=== PATIENT | female | born 1935 | race Caucasian/White ===

== ENCOUNTER → 2018-07-18 | Outpatient (CLI) | payer OTHER ==
[~2018-07-18] MED LIST: ANAPROX DS550 MG PO; ASPIRIN LOW DOS81 MG PO; ATIVAN0.5 MG PO; CALCIUM500 M1 PO; CELEBREX100 MG PO; CIPROFLOXACIN500 MG PO; CORBAN MAGNESI400 MG PO; FAMILY PHARMAC325 MG PO; KEFLEX500 M1 PO; LANSOPRAZOLE30 M1 PO; LEVOXYL88 MCG PO; LOSARTAN POTASS50 M1 PO; LYRICA75 M1 PO; METOCLOPRAMIDE5 MG PO; Metformin Hydr500 MG; PRESERVISION A1 EAC1 PO; PRILOSEC; PRILOSEC20 MG PO; REQUIP0.5 MG PO; SYNTHROID,LEV175 MCG PO; Synthroid,Lev150 MCG PO; Synthroid,Levo75 MCG PO; TRAMADOL HCL50 MG PO; VITAMIN D; ZOFRAN4 MG PO
[2018-07-18 11:29] LABS: IRON 52 ug/dL (50-170); TOTAL IRON BINDING CAPACITY 332 ug/dl (250-450)
== END | disposition home or self-care (01) ==
LOC: LAB 10:48
PROVIDERS: Internal Medicine
DX: C16.9 Malignant neoplasm of stomach, unspecified (principal); I10 Essential (primary) hypertension; E11.9 Type 2 diabetes mellitus without complications; E03.9 Hypothyroidism, unspecified; R42 Dizziness and giddiness; J22 Unspecified acute lower respiratory infection; D64.9 Anemia, unspecified

== ENCOUNTER 2018-09-19 22:14 | Inpatient (IN) | payer OTHER ==
--- NOTE | ~2018-09-19 | EKG ---
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
--- NOTE | ~2018-09-19 | EKG ---
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
--- NOTE | ~2018-09-19 | EKG ---
[place], [place] ELECTROCARDIOGRAM REPORT NAME: TERRI SHEN UNIT #: [id number] ROOM: 504 DOCTOR: SARINA DRAFT REPORT BIRTHDATE: [birth year] [facility] Test Date: 2018-09-20 Test Time: 01:19:58 Pat Name: TERRI SHEN Department: Room: 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
--- NOTE | ~2018-09-19 | CON ---
[place], [place] REPORT OF CONSULTATION NAME: TERRI SHEN [facility] #: [id number] UNIT #: [id number] ROOM: 504 DOCTOR: BEVERLEY SPEARS MD BIRTHDATE: [birth year] DOS: 09/20/2018 CARDIOLOGY CONSULTATION REASON FOR CONSULTATION: Chest pain. HISTORY OF PRESENT ILLNESS: The patient is an 83-year-old woman who has no previously documented history of coronary artery disease. She does have a history of type 2 diabetes mellitus and hypertension along with surgically induced hypothyroidism. She states that in 06/2018 she fell and since then has had considerable back pain. Some of the pain does radiate into her chest and causes a pressure sensation in her epigastrium and substernal region. She was hospitalized in 06/2018, at which time a myocardial infarction was ruled out. No further cardiac testing was done at that time. She has continued to have persistent chest pains and had a prolonged episode of severe chest pain prompting the current admission. During her hospitalization in June, she was noted to have a mild elevation in troponin. The pattern was stable and did not indicate an acute coronary syndrome. On the current admission, she has a similar pattern without much change from 06/2018. PAST MEDICAL HISTORY: Includes: 1. Type 2 diabetes mellitus. 2. Diabetic neuropathy and retinopathy. 3. Essential hypertension. 4. Status post thyroidectomy with subsequent hypothyroidism. 5. History of cancer of the ampulla of Vater. The patient underwent a Whipple procedure around 20 years ago and has not had any recurrence of her tumor. 6. Status post hysterectomy, cholecystectomy, thyroidectomy and knee replacement. 7. History of iron deficiency anemia. 8. Recurrent and persistent gastroesophageal reflux disease. MEDICATIONS: Prior to admission, acetaminophen p.r.n., amitriptyline 25 mg daily, aspirin 81 mg daily, calcium carbonate 500 mg b.i.d., Celebrex 200 mg daily, Parafon Forte 500 mg b.i.d., cholecalciferol 1000 units daily, iron sulfate 325 mg b.i.d., gabapentin 100 mg t.i.d., levothyroxine 400 mcg daily, losartan 50 mg daily, meclizine 25 mg b.i.d., metformin 500 mg b.i.d., omeprazole 20 mg daily, PreserVision vitamins b.i.d. ALLERGIES: THE PATIENT LISTS AN ALLERGY TO CODEINE. FAMILY HISTORY: The patient's mother of complications of diabetes and a stroke. Her father of coronary artery disease complications. Her sister has a history of breast cancer. REVIEW OF SYSTEMS: The patient denies diplopia or loss of vision. She denies focal weakness. She denies lightheadedness or syncope. She denies fevers, chills, sweats or recent weight change. She denies vomiting, but she has had [place], [place] REPORT OF CONSULTATION NAME: TERRI SHEN UNIT #: [id number] ROOM: [facility] DOCTOR: BEVERLEY SPEARS MD BIRTHDATE: [birth year] some nausea. She has had some shortness of breath associated with the chest pain. She has had the chest pains documented above. She denies cough, hemoptysis or hematemesis. She denies any blood in her stools or urine. She denies bleeding from any other site. She denies any skin rashes. She denies change in her bowel or bladder habits. She denies any peripheral edema. The remainder of the review of systems is negative except as noted above. SOCIAL HISTORY: The patient has never smoked and does not consume alcohol. There is no history of illicit drug use. PHYSICAL EXAMINATION: GENERAL: The patient is an overweight white female, awake, alert and oriented. VITAL SIGNS: Pulse is 77 and regular, blood pressure is 145/64. She is afebrile. She weighs 75.5 kg and has a body mass index of 31.5. HEENT: Normocephalic, atraumatic. Extraocular muscles are intact. Sclerae are clear. Pupils equal, round and reactive to light. The oral mucosa is moist. Tongue is midline. NECK: Supple. She has no jugular distention. Carotids are full. There are no bruits. She has no neck or supraclavicular masses, no thyromegaly. LUNGS: Respirations are unlabored. Her chest is clear to auscultation and percussion. She has no presacral edema. She has some mild tenderness of her lower sternum, but this does not reproduce her presenting chest pains. CARDIOVASCULAR: Heart has a regular rhythm with a soft S4 gallop, but no S3 or murmur. The PMI is not displaced. There is no precordial heave, lift or thrill. ABDOMEN: Soft and normally active without masses, organomegaly or bruits. EXTREMITIES: Showed no clubbing, cyanosis or edema. Pedal pulses are palpable in the feet bilaterally. LABORATORY DATA: I reviewed her electrocardiogram, which showed sinus rhythm. She has early precordial R-wave progression, but the tracing is otherwise normal and shows no acute ST or T-wave changes. Hemoglobin is 9.7, white count 12,600, platelet count 400,000. INR is 1.0. Sodium 147, potassium 4.7, chloride 119, CO2 22, BUN 15, creatinine 1.05. Estimated GFR is 50. AST is elevated at 58, ALT is normal, alkaline phosphatase is elevated at 170. Serial troponin levels once again showed minimal elevation at a maximum of 0.086. TSH is slightly low at 0.315. Total bilirubin is normal at 0.3. IMPRESSION: 1. Epigastric pain, etiology to be determined. The patient does have a mild elevation in troponin, but does not have a pattern that suggested acute coronary syndrome and her EKG shows no acute changes. 2. History of Whipple procedure for carcinoma of the ampulla. 3. Type 2 diabetes mellitus. 4. Gastroesophageal reflux disease. 5. Elevation in transaminase levels. 6. Persistent elevation in troponin of a low level. PLAN: We will proceed with a pharmacologic stress test. At this point, it appears that her pains are not cardiac in origin, but we will be able to [place], [place] REPORT OF CONSULTATION [id number] UNIT #: [id number] ROOM: [facility] DOCTOR: BEVERLEY SPEARS MD BIRTHDATE: [birth year] determine if she has had a previous infarction or significant ongoing ischemia. If that looks normal, then no other cardiac workup would be indicated, but further GI evaluation may be. We will leave that to her primary physician's discretion. We will proceed with her pharmacologic stress test and make further recommendations at that point. I thank the hospitalist physicians for asking our advice regarding her care. BEVERLEY SPEARS MD CM:CONSTR:REPORT OF CONSULTATION 1257 09/20/18 1326 interface
[~2018-09-19 22:14] MED LIST changes: +OMEPRAZOLE D/R20 MG PO; -PRILOSEC20 MG PO
[2018-09-19 22:17] VITALS: BP 162/90
[2018-09-19 22:51] LABS: BASO # 0.1 10*3/uL (0.0-0.1); BASO % 0.9 % (0.0-1.0); EOS # 0.2 10*3/uL (0.0-0.4); EOS % 1.1 % (1.0-4.0); HEMATOCRIT 35.4 % (37.0-47.0); HEMOGLOBIN 10.8 g/dl (12.0-16.0); LYMPH # 1.9 10*3/uL (1.3-4.4); LYMPH % 14.6 % (27.0-41.0); MEAN CELL VOLUME 98.6 fl (81.0-99.0); MEAN CORPUSCULAR HGB 30.1 pg (27.0-31.0); MEAN CORPUSCULAR HGB CONC 30.5 g/dl (33.0-37.0); MEAN PLATELET VOLUME 11.1 fl (9.6-12.3); MONO # 1.1 10*3/uL (0.1-1.0); MONO % 8.1 % (3.0-9.0); NEUT # 9.9 10*3/uL (2.3-7.9); NEUT % 74.5 % (47.0-73.0); NUCLEATED RED BLOOD CELL 0.2 % (0.0-0.0); PLATELET COUNT AUTOMATED 401 10*3/uL (130-400); RED BLOOD COUNT 3.59 10*6/uL (4.10-5.10); RED CELL DISTRI WIDTH 19.6 % (0-14.5); WHITE BLOOD COUNT 13.3 10*3/uL (4.8-10.8)
[2018-09-19 23:02] LABS: ACT PARTIAL THROMBO TIME 24.7 SECONDS (20.8-31.5)
[2018-09-19 23:08] LABS: ALBUMIN 2.8 gm/dl (3.1-4.5); CREATININE 1.26 mg/dL (0.55-1.02); POTASSIUM 5.6 mmol/L (3.5-5.1); TOTAL PROTEIN 6.9 gm/dL (6.4-8.2)
[2018-09-19 23:10] LABS: TROPONIN I 0.079 ng/ml (<0.045)
[2018-09-19 23:11] VITALS: BP 144/82
[2018-09-20 00:16] VITALS: BP 147/71
--- NOTE | 2018-09-20 00:32 | NUR ---
FAMILY AT BEDSIDE PT DENIES ANY CHEST PAIN AT THIS TIME STATES PAIN IS IN SHOULDERS AT 8/10 PT GIVEN 0.5MG DILAUDID SLOW IV PUSH
--- NOTE | 2018-09-20 00:47 | NUR ---
Time: 46 A 83 year old FEMALE admitted to 5E under services of CULLEN AVILEZ DO, Pt. arrived via stretcher from ER. Chief complaint: CHEST PAIN. ISAC GRAHAM
[2018-09-20] MEDS ORDERED: MOTION SICKNESS25 MG PO (00:54)
[2018-09-20] MEDS ORDERED: AMITRIPTYLINE25 MG PO (00:55)
[2018-09-20] MEDS ORDERED: GLUCOPHAGE500 M1 PO (00:56)
[2018-09-20] MEDS ORDERED: IRON325 M3 PO (00:57)
[2018-09-20] MEDS ORDERED: VITAMIN D31000 UNI1 PO (00:58)
[2018-09-20] MEDS ORDERED: SYNTHROID300 MCG PO (00:59)
[2018-09-20 01:00] VITALS: BP 150/68
[2018-09-20] MEDS ORDERED: TYLENOL EXTRA500 MG PO (01:00)
[2018-09-20] MEDS ORDERED: CHLORZOXAZONE500 M2 PO (01:01)
[2018-09-20] MEDS ORDERED: CELEBREX100 MG PO (01:02)
--- NOTE | 2018-09-20 01:06 | NUR ---
MED REC UP TO DATE PER LIST PROVIDED BY FAMILY. NOTIFIED.
[2018-09-20] MEDS ORDERED: GABAPENTIN100 M2 PO (01:09)
--- NOTE | 2018-09-20 01:37 | NUR ---
DR SPEARS'S ANSWERING SERVICE AWARE OF CONSULT
--- NOTE | 2018-09-20 01:39 | NUR ---
DR RUSSELL AWARE OF [facility] RECOMMENDING DECREASING LOVENOX FROM 40 TO 30 DAILY
[2018-09-20 04:26] LABS: BASO # 0.1 10*3/uL (0.0-0.1); BASO % 0.9 % (0.0-1.0); EOS % 0.2 % (1.0-4.0); HEMATOCRIT 32.7 % (37.0-47.0); HEMOGLOBIN 9.7 g/dl (12.0-16.0); MEAN CELL VOLUME 98.8 fl (81.0-99.0); MEAN CORPUSCULAR HGB 29.3 pg (27.0-31.0); MEAN CORPUSCULAR HGB CONC 29.7 g/dl (33.0-37.0); MEAN PLATELET VOLUME 11.2 fl (9.6-12.3); MONO # 0.9 10*3/uL (0.1-1.0); MONO % 7.2 % (3.0-9.0); NEUT # 9.5 10*3/uL (2.3-7.9); NEUT % 75.1 % (47.0-73.0); NUCLEATED RED BLOOD CELL 0.2 % (0.0-0.0); PLATELET COUNT AUTOMATED 400 10*3/uL (130-400); RED BLOOD COUNT 3.31 10*6/uL (4.10-5.10); RED CELL DISTRI WIDTH 19.9 % (0-14.5); WHITE BLOOD COUNT 12.6 10*3/uL (4.8-10.8)
[2018-09-20 04:41] LABS: ACT PARTIAL THROMBO TIME 25.8 SECONDS (20.8-31.5)
[2018-09-20 04:42] LABS: ALBUMIN 2.4 gm/dl (3.1-4.5); ALKALINE PHOSPHATASE 170 U/L (45-117); BUN 15 mg/dl (7-24); CHLORIDE 119 mmol/L (98-107); CREATININE 1.05 mg/dL (0.55-1.02); POTASSIUM 4.7 mmol/L (3.5-5.1); SGOT/AST 58 IU/L (3-35); SGPT/ALT 47 U/L (12-78); SODIUM 147 mmol/L (136-145); TOTAL PROTEIN 6.1 gm/dL (6.4-8.2)
[2018-09-20 04:44] LABS: FREE T4 1.38 ng/dl (0.76-1.46)
--- NOTE | 2018-09-20 04:48 | NUR ---
DR RUSSELL AWARE OF CRITICAL TROPONIN
[2018-09-20 04:50] LABS: THYROID STIM HORMONE (HS) 0.315 uIU/ml (0.358-4.75)
--- NOTE | 2018-09-20 06:12 | NUR ---
PATIENT RESTING IN BED WITH NO S/S OF DISTRESS. NO NEEDS MADE. RESPIRATIONS EASY AND REGULAR. DENIES CHEST PAIN OR PRESSURE. BED IN LOWEST POSITION, CALL LIGHT IN REACH
[2018-09-20 07:30] VITALS: BP 136/70
--- NOTE | 2018-09-20 11:47 | NUR ---
Shift chart check completed.
[2018-09-20 12:00] VITALS: BP 145/64
--- NOTE | 2018-09-20 12:30 | NUR ---
INFORMED CONSENT OBTAINED FOR LEXISCAN NUCLEAR STRESS TEST WITH DR. SPEARS. RESTING EKG NSR WITH A RESTING HR OF 79 WITH BP OF 118/74. LUNGS CLEAR WITH SPO2 OF 94% ON ROOM AIR. PT COMPLETED A 1:00 LEXISCAN PROTOCOL RECEIVING LEXISCAN 0.4 MG IV OVER 10 SECONDS. HAD NO CHEST PAIN OR ANY EKG CHANGES. DID C/O FEELING OF SHORTNESS OF BREATH, WARM AND HEADACHE THAT WAS RELIEVED IN RECOVERY. HAD A PEAK HR OF 93 WITH BP OF 134/68. LAST RECOVERY HR OF 88 WITH BP OF 122/72. AWAITING SCANNING IN STABLE CONDITION.
--- NOTE | 2018-09-20 13:53 | NUR ---
Spoke with Dr. Bowling about resuming patients diet. No new orders at this time.
--- NOTE | 2018-09-20 15:31 | NUR ---
Occupational Therapy evaluation offered this date but patient was seated edge of bed with family present, eating lunch. OTR will recheck at a later date. Geetha Brooke OTR/l
[2018-09-20 16:00] VITALS: BP 147/98
--- NOTE | 2018-09-20 17:36 | NUR ---
[place] given per patient request for pain in her right shoulder. Will monitor.
[2018-09-20 20:00] VITALS: BP 122/63; BP 181/49
--- NOTE | 2018-09-20 21:30 | NUR ---
PATIENT MEDICATED WITH NORCO AND RESTORIL PER PRN ORDER FOR C/O SHOULDER PAIN AND INABILITY TO SLEEP. RATED SHOULDER PAIN A 5/10 WITH 10 BEING THE WORST. SEE EMAR. REINFORCED USE OF CALL LIGHT.
--- NOTE | 2018-09-20 23:16 | NUR ---
24 HR chart check completed.
[2018-09-21] VITALS: BP 117/47
[2018-09-21 06:47] LABS: BASO # 0.1 10*3/uL (0.0-0.1); BASO % 1.2 % (0.0-1.0); EOS # 0.2 10*3/uL (0.0-0.4); EOS % 2.1 % (1.0-4.0); HEMATOCRIT 31.1 % (37.0-47.0); HEMOGLOBIN 9.3 g/dl (12.0-16.0); LYMPH # 2.9 10*3/uL (1.3-4.4); LYMPH % 31.3 % (27.0-41.0); MEAN CELL VOLUME 99.7 fl (81.0-99.0); MEAN CORPUSCULAR HGB 29.8 pg (27.0-31.0); MEAN CORPUSCULAR HGB CONC 29.9 g/dl (33.0-37.0); MEAN PLATELET VOLUME 11.8 fl (9.6-12.3); MONO # 0.9 10*3/uL (0.1-1.0); NEUT % 54.6 % (47.0-73.0); NUCLEATED RED BLOOD CELL 0.4 % (0.0-0.0); PLATELET COUNT AUTOMATED 372 10*3/uL (130-400); RED BLOOD COUNT 3.12 10*6/uL (4.10-5.10); RED CELL DISTRI WIDTH 19.6 % (0-14.5); WHITE BLOOD COUNT 9.2 10*3/uL (4.8-10.8)
[2018-09-21 07:23] LABS: BUN 15 mg/dl (7-24); CHLORIDE 117 mmol/L (98-107); POTASSIUM 4.3 mmol/L (3.5-5.1); SGOT/AST 52 IU/L (3-35); SODIUM 146 mmol/L (136-145)
[2018-09-21 07:25] LABS: ALKALINE PHOSPHATASE 146 U/L (45-117); CREATININE 1.02 mg/dL (0.55-1.02); SGPT/ALT 37 U/L (12-78); TOTAL PROTEIN 5.3 gm/dL (6.4-8.2)
--- NOTE | 2018-09-21 07:30 | NUR ---
Patient resting quietly with no c/o discomfort. Respirations easy and regular. Vital signs stable. No overt distress. CONOR ESPOSITO
--- NOTE | 2018-09-21 07:59 | NUR ---
24 HR chart check completed.
--- NOTE | 2018-09-21 09:16 | NUR ---
PHYSICAL THERAPY PROGRESS NOTE: Pt was seen on 5th floor for evaluation with moderate complexity determined [id number]. She ambulates with supervision 70', bed mobiltiy independnet, transfers supervision. She lives with , whom she does assist at times, in single story home with 10 steps to enter. She describes a very attentive family who assists as needed. She reports constant right shoulder pain, which began 3 months ago after a fall which progressively worsens as the day goes on which is interrupting her sleep. Pt would benefit from returning home with family supervision and recommendation for OP PT services for intervention to mitigate right shoulder pain. Thank you for this referral. Raegan Burrell, PT
--- NOTE | 2018-09-21 10:54 | NUR ---
Assistant Golf Professional in to talk to patient. Patient states lives at HOME with . There are FEW steps in the home. Physician: Alcides LIEBERMAN IN [place] Pharmacy: [facility] Home health services: NONE Patient's level of ADLs: INDEPENDENT Patient has working utilities: YES DME: NONE Follow-up physician's appointment after d/c: WILL BE MADE BY HOSPITALIST NURSE DIRECTOR ON DISCHARGE Does patient want to access PORTAL?: NO Discharge plan PT STATES SHE LIVES WITH HER AND IS MOSTLY INDEPENDENT IN CARE. SPOKE WITH PT ABOUT HOME HEALTH AND SHE AGREES TO SERVICES. STATES SHE HAS HAD [facility] IN THE PAST AND WOULD LIKE THEM AGAIN. WILL FAX REFERRAL. PT CAN BE DISCHARGED TO HOME WHEN MEDICALLY STABLE. WILL CONTINUE TO FOLLOW.. MADDIE EISENBERG
--- NOTE | 2018-09-21 11:04 | NUR ---
Occupational Therapy evaluation completed on 5 with full eval to follow. Precautions include fall risk, IV UE, diabetic retinopathy, 8/10 shd pain. Patient is moderate complexity level 44588 via chart review, testing and evaluation. Recommend OT per POC and return home with family and home health OT,PT,SN. Thank you for this referral. Geetha Brooke OTR/L
[2018-09-21 12:00] VITALS: BP 126/57
[2018-09-21] MEDS ORDERED: HYDROCODONE-AC1 EAC1 PO (12:40)
--- NOTE | 2018-09-21 12:51 | NUR ---
Patient requesting [facility] upon discharge. received order, faxed referral.
--- NOTE | 2018-09-21 14:50 | NUR ---
LEAVING IN CARE OF SPOUSE.
--- NOTE | 2018-09-25 08:00 | NUR ---
PHYSICAL THERAPY CO-SIGN I approve of the Phyical Therapy notes written above. FAITH GUERRA PT
[2018-10-05] MEDS ORDERED: ALEVE220 MG PO (14:44)
[2018-10-11] MEDS ORDERED: GAVISCON ES TA1 EACH PO (09:20)
== END 2018-09-21 14:50 | disposition home health service (06) | DRG 205 ==
LOC: ED 22:14 → 5E 09-20 00:16 → EDHOLD 09-20 00:16 → 5E 09-20 00:29
PROVIDERS: Emergency Medicine; Family Medicine; Internal Medicine; ADMIT Internal Medicine
DX: M94.0 Chondrocostal junction syndrome [Tietze] (principal); J18.9 Pneumonia, unspecified organism; N17.0 Acute kidney failure with tubular necrosis; R65.10 Systemic inflammatory response syndrome (SIRS) of non-infectious origin without acute organ dysfunction; K21.9 Gastro-esophageal reflux disease without esophagitis; F41.1 Generalized anxiety disorder; Z88.5 Allergy status to narcotic agent; E11.40 Type 2 diabetes mellitus with diabetic neuropathy, unspecified; E11.319 Type 2 diabetes mellitus with unspecified diabetic retinopathy without macular edema; Z91.81 History of falling; Z90.710 Acquired absence of both cervix and uterus; Z90.49 Acquired absence of other specified parts of digestive tract; Z96.651 Presence of right artificial knee joint; Z83.3 Family history of diabetes mellitus; Z80.3 Family history of malignant neoplasm of breast; Z82.49 Family history of ischemic heart disease and other diseases of the circulatory system; Z82.3 Family history of stroke; E87.5 Hyperkalemia; E87.8 Other disorders of electrolyte and fluid balance, not elsewhere classified; E11.65 Type 2 diabetes mellitus with hyperglycemia; E89.0 Postprocedural hypothyroidism; K44.9 Diaphragmatic hernia without obstruction or gangrene; Z79.84 Long term (current) use of oral hypoglycemic drugs

== ENCOUNTER → 2018-10-11 | Day surgery (SDC) | payer OTHER ==
[~2018-10-11] MED LIST changes: +ALEVE220 MG PO; +AMITRIPTYLINE25 MG PO; +CHLORZOXAZONE500 M2 PO; +GABAPENTIN100 M2 PO; +GAVISCON ES TA1 EACH PO; +GLUCOPHAGE500 M1 PO; +HYDROCODONE-AC1 EAC1 PO; +IRON325 M3 PO; +MOTION SICKNESS25 MG PO; +SYNTHROID300 MCG PO; +TYLENOL EXTRA500 MG PO; +VITAMIN D31000 UNI1 PO
--- NOTE | ~2018-10-11 | O ---
[place], [place] OPERATIVE NOTE NAME: TERRI SHEN [facility] #: [id number] UNIT #: [id number] ROOM: DOCTOR: BRIAN BHATTIOLGA LIDIAFORMERLY [facility], [facility] BIRTHDATE: [birth year] DOS: 10/11/2018 GASTROENDOSCOPIC REPORT HISTORY OF PRESENT ILLNESS: The patient is an 83-year-old who was presented with reflux symptomatology. He was dyspeptic, dysphagic. ALLERGIES: No known medication. PAST SURGICAL HISTORY: Status post Whipple ampullary carcinoma. FAMILY HISTORY: Brother with gastric carcinoma and pancreatic carcinoma. PAST MEDICAL HISTORY: Obesity, diabetes mellitus, hypertension, neuropathy. SOCIAL HISTORY: Nonsmoker, nonalcohol consumer. PROCEDURE: Today's procedure part of investigation of dyspepsia is panendoscopy plus biopsy. PREMEDICATION: Propofol. SCOPE: Olympus forward-viewing gastroscope Q10 video. REPORT: After putting the patient in left lateral position and application of lubricant to the scope, the scope was introduced. Thereafter, under direct visualization, advanced through the length of esophagus without difficulty. Gastric pouch was entered. Evidence of gastritis was noticed, a hiatal hernia appreciated, configuration of status post Whipple was noticed. Anastomotic site was biopsied. Gastric bypass configuration status post Whipple is appears to be intact. Some gastritis, some minimal gastric erosions, relatively moderate size hiatal hernia, all identified. Photographic series obtained. Enteric site within the normal limit. The patient extubated, tolerated the procedure well. IMPRESSION: EGD plus biopsy, status post gastric Whipple procedure, gastritis, gastric erosion, hiatal hernia. PLAN AND DISCUSSION: We are going to increase her omeprazole to 20 mg b.i.d. This patient has been on multiple offending medication to her gastric tissue including Parafon forte, iron supplementation, aspirin, naproxen, Celebrex. Therefore, I am going to ask her to stop her Celebrex and also increasing her omeprazole 20 mg b.i.d. as well as Gaviscon Extra Strength to be taken 1 at bedtime with elevation of head of the bed 6 inches all time and also utilization of her Gaviscon for p.r.n. use dyspepsia. Her naproxen to be taken only on full stomach and clinical reassessment. Thank you very much indeed for your kind referral. [place], [place] OPERATIVE NOTE NAME: TERRI SHEN UNIT #: [id number] ROOM: DOCTOR: CORRIE TORRES MD BIRTHDATE: [birth year] CORRIE TORRES MD CM:OPRECORD:OPERATIVE NOTE 9 CORRIE TORRES MD 10/11/18919 interface
[2018-10-11 06:55] VITALS: BP 130/73
[2018-10-11 08:22] VITALS: BP 123/66
[2018-10-11 08:40] VITALS: BP 139/70
[2018-10-11 08:52] VITALS: BP 141/71
== END | disposition home or self-care (01) ==
LOC: SDC 10-06 11:00
DX: K29.50 Unspecified chronic gastritis without bleeding (principal); I10 Essential (primary) hypertension; E11.40 Type 2 diabetes mellitus with diabetic neuropathy, unspecified; K44.9 Diaphragmatic hernia without obstruction or gangrene; K21.9 Gastro-esophageal reflux disease without esophagitis; F41.9 Anxiety disorder, unspecified; F19.11 Other psychoactive substance abuse, in remission; Z98.890 Other specified postprocedural states; Z90.81 Acquired absence of spleen; Z88.5 Allergy status to narcotic agent; Z90.710 Acquired absence of both cervix and uterus; Z96.651 Presence of right artificial knee joint; Z79.4 Long term (current) use of insulin; Z79.82 Long term (current) use of aspirin; Z85.038 Personal history of other malignant neoplasm of large intestine; Z85.07 Personal history of malignant neoplasm of pancreas; Z85.028 Personal history of other malignant neoplasm of stomach; Z83.3 Family history of diabetes mellitus; Z82.49 Family history of ischemic heart disease and other diseases of the circulatory system

== ENCOUNTER 2019-09-30 23:59 | Inpatient (IN) | payer OTHER ==
[~2019-09-30] VITALS: Ht 160 cm; Wt 69.6 kg
[~2019-09-30 23:59] MED LIST changes: -OMEPRAZOLE D/R20 MG PO; +OMEPRAZOLE MAGN20 MG PO
[2019-10-01] VITALS (7 sets, daily range): BP systolic 118–154; BP diastolic 48–70
[2019-10-01 00:40] LABS: HEMATOCRIT 26.9 % (37.0-47.0); MEAN CELL VOLUME 125.7 fl (81.0-99.0); MEAN CORPUSCULAR HGB 37.4 pg (27.0-31.0); MEAN CORPUSCULAR HGB CONC 29.7 g/dl (33.0-37.0); MEAN PLATELET VOLUME 12.7 fl (9.6-12.3); NUCLEATED RED BLOOD CELL 0.1 10*3/uL (0.0-0.0); PLATELET COUNT AUTOMATED 217 10*3/uL (130-400); RED BLOOD COUNT 2.14 10*6/uL (4.10-5.10); RED CELL DISTRI WIDTH 22.5 % (0-14.5); WHITE BLOOD COUNT 12.5 10*3/uL (4.8-10.8)
[2019-10-01 00:55] LABS: CREATININE 1.43 mg/dL (0.55-1.02); POTASSIUM 3.6 mmol/L (3.5-5.1); TOTAL PROTEIN 5.7 gm/dL (6.4-8.2); TROPONIN I 0.016 ng/ml (<0.045)
[2019-10-01 01:07] LABS: BURR CELLS FEW; PLATELET SUFFICIENCY NORMAL (NORMAL); TOTAL CELLS COUNTED 100 #CELLS
--- NOTE | 2019-10-01 02:46 | NUR ---
CRICAL LACTIC OF 2.[address] TEMPLE.
[2019-10-01 03:02] LABS: BILIRUBIN NEGATIVE (NEGATIVE); BLOOD NEGATIVE (NEGATIVE); CLARITY CLEAR (CLEAR); COLOR YELLOW (YELLOW); GLUCOSE NEGATIVE (NEGATIVE); KETONE NEGATIVE (NEGATIVE); LEUKO ESTERASE TRACE (NEGATIVE); NITRITE NEGATIVE (NEGATIVE); UROBILINOGEN 0.2 E.U./dl (0.2-1.0)
[2019-10-01 03:16] LABS: HYALINE CAST 45-50
[2019-10-01 03:17] LABS: WBC 21-30 wbc/hpf (0-5); YEAST 2+
--- NOTE | 2019-10-01 04:50 | NUR ---
PT STATES MORPHINE HELPED A LITTLE.
--- NOTE | 2019-10-01 05:00 | NUR ---
A 84, admitted to , under the services of PIA Man DO with a diagnosis of TAYO,SEPSIS,CHEST PAIN,AND PNEUMONIA. Chief complaint is CHEST PAIN. Patient arrived via stretcher from ER. Monitor applied. Initial assessment completed. Vital signs taken and recorded. PIA MAN DO notified of admission to the unit. Orders received. See assessment for past medical history, medications and allergies. Patient and/or family oriented to unit. [facility] Clothing/patient valuable form completed. RICCARDO EISEBNERG
[2019-10-01] MEDS ORDERED: TENORMIN25 M1 PO (06:08)
[2019-10-01] MEDS ORDERED: BIOTENE MOIST44.3 ML PO (06:09)
[2019-10-01] MEDS ORDERED: COLACE100 MG PO (06:11)
[2019-10-01] MEDS ORDERED: DULOXETINE HCL60 MG PO (06:12)
[2019-10-01] MEDS ORDERED: DULCOLAX10 M1 R (06:12)
[2019-10-01] MEDS ORDERED: IBU-200200 MG PO (06:13)
[2019-10-01] MEDS ORDERED: LASIX20 MG PO (06:14)
[2019-10-01] MEDS ORDERED: MILK OF MA400 MG/5 M PO (06:17)
[2019-10-01] MEDS ORDERED: MIRALAX POWDER17 G1 PO (06:17)
[2019-10-01] MEDS ORDERED: PREPARATION H R28 GM R (06:19)
[2019-10-01] MEDS ORDERED: PRESERVISION A1 EAC2 PO (06:20)
[2019-10-01] MEDS ORDERED: RANOLAZINE ER500 MG PO (06:21)
--- NOTE | 2019-10-01 06:25 | NUR ---
SPOKE WITH DR HINDS- MEDICATIONS LIST UP TO DATE. NEW ORDERS RECEIVED- SEE EMAR.
--- NOTE | 2019-10-01 07:59 | NUR ---
PT RESTING IN BED/ NO DISTRESS NOTED. WILL MONITOR
--- NOTE | 2019-10-01 10:24 | NUR ---
TERRI SHEN [id number] Please refer to the physician's history and physical for past medical history, comorbid conditions, and allergies. Diagnosis: TAYO SEPSIS CHEST PAIN PNEUMONIA Yandel Score: 11,HIGH RISK WOUND DESCRIPTIONS: Wound Number: 1 left buttocks scar tissue noted at time of assessment, no open areas noted at time of assessment, no drainage noted at time of assessment. Wound Number:2 coccyx scar tissue noted at time of assessment, no open areas noted at time of assessment, no drainage noted at time of assessment. Surface the patient is resting on: Proform SKIN PREVENTION RECOMMENDATION: 1. Pressure redistribution support surface as appropriate 2. Elevate heels 3. Remove boots/TEDS every shift and reapply 4. Head of bed 30 degrees as tolerated 5. Assess nutrition and hydration 6. Manage moisture 7. Avoid the use of containment devices while in bed 8. Use absorptive products on surfaces limit layers of linens on bed 9. Turn and reposition every 1-2 hours in bed and every 1 hour in chair as tolerated 10. Weight shifts every 15 minutes while up in chair 11. Offloading with pillows or device to keep heels elevated off bed 12. Monitor skin at least every shift 13. Inspect under medical devices twice a day WOUND TREATMENT RECOMMENDATIONS: Wheelchair cushion when oob. Cleanse left buttocks and coccyx with soap and water and apply hydraguard every shift and prn for soiling.
--- NOTE | 2019-10-01 11:24 | NUR ---
Patient came from [facility] short term. Patient requires PT/OT evals and a precert to return. Patient is under a different name at [facility]; she's listed as Nay Landeros. Notified hospitalists office of different name and will need PT/OT orders.
--- NOTE | 2019-10-01 17:03 | NUR ---
PT CONTINUES TO SLEEP, PT VERY DROWSY TODAY . DR MCFARLAND NOTIFIED FAMILY AT BEDSIDE
--- NOTE | 2019-10-01 19:22 | NUR ---
24 HR chart check completed.
--- NOTE | 2019-10-01 23:35 | NUR ---
DR ISAAC CALLED WITH NEW WOUND FOUND ON PT LEFT ANKLE. NEW ORDERS RECEIVED- SEE EMAR.
[2019-10-02] VITALS: BP 158/88
--- NOTE | 2019-10-02 00:21 | NUR ---
PATIENT C/O GENERALIZED ACHES. TYLENOL ADMINISTERED PRESCRIBED. WILL MONITOR FOR EFFECTIVENESS.
--- NOTE | 2019-10-02 00:31 | NUR ---
PATIENT C/O NAUSEA. ZOFRAN ADMINISTERED PRESCRIBED. WILL MONITOR FOR EFFECTIVENESS.
--- NOTE | 2019-10-02 05:03 | NUR ---
TERRI MAHMOOD [id number] Please refer to the physician's history and physical for past medical history, comorbid conditions, and allergies. Diagnosis: TAYO SEPSIS CHEST PAIN PNEUMONIA Yandel Score: 11,HIGH RISK WOUND DESCRIPTIONS: Left lateral aspect of ankle red blanchable area noted. No open areas at time of assessment. Tender to touch. No drainage at time of assessment Surface the patient is resting on: Proform SKIN PREVENTION RECOMMENDATION: 1. Pressure redistribution support surface as appropriate 2. Elevate heels 3. Remove boots/TEDS every shift and reapply 4. Head of bed 30 degrees as tolerated 5. Assess nutrition and hydration 6. Manage moisture 7. Avoid the use of containment devices while in bed 8. Use absorptive products on surfaces limit layers of linens on bed 9. Turn and reposition every 1-2 hours in bed and every 1 hour in chair as tolerated 10. Weight shifts every 15 minutes while up in chair 11. Offloading with pillows or device to keep heels elevated off bed 12. Monitor skin at least every shift 13. Inspect under medical devices twice a day WOUND TREATMENT RECOMMENDATIONS: Heel raiser pro boots to left foot Dressing change: Apply sureprep to left lateral ankle allow time to dry then cover with optifoam gentle daily.
[2019-10-02 06:05] LABS: HEMATOCRIT 24.9 % (37.0-47.0); HEMOGLOBIN 7.4 g/dl (12.0-16.0); MEAN CELL VOLUME 125.8 fl (81.0-99.0); MEAN CORPUSCULAR HGB 37.4 pg (27.0-31.0); MEAN CORPUSCULAR HGB CONC 29.7 g/dl (33.0-37.0); MEAN PLATELET VOLUME 12.8 fl (9.6-12.3); NUCLEATED RED BLOOD CELL 0.3 10*3/uL (0.0-0.0); NUCLEATED RED BLOOD CELL 1.8 % (0.0-0.0); PLATELET COUNT AUTOMATED 211 10*3/uL (130-400); RED BLOOD COUNT 1.98 10*6/uL (4.10-5.10); RED CELL DISTRI WIDTH 22.8 % (0-14.5); WHITE BLOOD COUNT 14.8 10*3/uL (4.8-10.8)
[2019-10-02 06:16] LABS: CREATININE 1.4 mg/dL (0.55-1.02); PHOSPHOROUS 3.5 mg/dL (2.5-4.9); POTASSIUM 3.7 mmol/L (3.5-5.1)
[2019-10-02 06:23] LABS: THYROID STIM HORMONE (HS) 0.388 uIU/ml (0.358-4.75)
--- NOTE | 2019-10-02 06:25 | NUR ---
PATIENT BLADDER SCANNED FOR NO URINE OUTPUT ON DETENTION ATTENDANT FOR 457ML. STRAIGHT CATHED FOR 600ML OF DARÍO CLOUDY URINE. DR LUCIANO AWARE.
[2019-10-02 07:24] LABS: PLATELET SUFFICIENCY NORMAL (NORMAL); TOTAL CELLS COUNTED 100 #CELLS
[2019-10-02 07:25] LABS: BURR CELLS MODERATE; HOWELL-JOLLY BODIES FEW; TARGET CELLS FEW
[2019-10-02 07:37] LABS: VITAMIN D, 25-HYDROXY 55.5 ng/mL (30-100)
[2019-10-02 08:00] VITALS: BP 140/80
--- NOTE | 2019-10-02 09:00 | NUR ---
Revenue Enforcement Agent in to talk to patient. Patient states lives at home with . There are no steps in the home. Physician: manpreet lai Pharmacy: [email or web address] Home health services: none Patient's level of ADLs: MINIMAL ASSIST Patient has working utilities: all working DME: walker Follow-up physician's appointment after d/c: will be made by hospitalist nurse director upon discharge Does patient want to access PORTAL?: no Discharge plan discussed with patient, she normally lives at home with , she had some difficulty ambulating and doing adls. she was sent into the hospital form [facility] where she was for skilled care for rehab, she states she will return to [facility] when medically stable to finishe her rehab, case management/program planner will follow. RIA CORBETT
--- NOTE | 2019-10-02 10:09 | NUR ---
Dr. Burch notified of wound care recommendations.
--- NOTE | 2019-10-02 10:30 | NUR ---
PHYSICAL THERAPY Shaquille completed full report to follow high level of complexity 38554 recomend return to SNF/rehab at discharge. PT to work on transfers, standing tolerance maintaining NWB of RLE, balance/strengthening. Daria Estrada PT
--- NOTE | 2019-10-02 10:40 | NUR ---
Occupational therapy orders received and OT evaluation completed in full on floor four. Patient precautions include fall risk, A&Ox1, 2LO2, weakness, confusion, RLE NWB, LLE WBAT, and walter lift. OT recommends that the patient continue to walter lift for functional transfers due to not having her left LE brace for support. Per OT eval, patient would benefit from returning to a SNF. Patient complexity is high, [id number]. Thank you for the referral. Nelly Kennedy, OTR/L
[2019-10-02 12:00] VITALS: BP 122/54
--- NOTE | 2019-10-02 12:07 | NUR ---
Nutritional Support Services Note: Pt is on a regular diet receiving chocolate ensure w/ meals. PO intakes are poor. Staff to encourage PO intake, honor food preferences, assist w/ meals as needed. Will if follow if needed. TABATHA Braden kinesiology internship
--- NOTE | 2019-10-02 14:13 | NUR ---
Faxed updated clinicals and therapy evals to [facility] for review and asked to start precert for her return. Notified [facility] facility that patient chart is under 2 different last names and that Bubba and Tigre are the same patient.
--- NOTE | 2019-10-02 14:19 | NUR ---
PT INCONTINENTX1 BREIF, BLADDER SCANNED PT FOR 186 ML URINE PER PHYSICIAN ORDER.STRIP ON FILE IN CHART.
--- NOTE | 2019-10-02 15:31 | NUR ---
PT TRANSERRED TO 510,REPORT GIVEN TO LAURA POWER,
--- NOTE | 2019-10-02 15:35 | NUR ---
On arrival to 5e pt is confused and restless. pulled her iv line out of her neck. reoriented and po tylenol given for pain.
[2019-10-02 16:00] VITALS: BP 154/65
--- NOTE | 2019-10-02 16:30 | NUR ---
PT ASSISTED OUT OF BED IN TO RECLINER CHAIR WITH MAXIMUM 2 ASSIST NEEDED DUE TO NO WEIGHT BEARING TO RIGHT LEG.
--- NOTE | 2019-10-02 18:25 | NUR ---
DUE TO COMPUTER ISSUES 1800 MEDS WERE GIVEN BUT UNABLE TO SCAN THEM.
--- NOTE | 2019-10-02 18:50 | NUR ---
PT MEDICATED WITH MORPHINE 2MG IV FOR PAIN TO FRACTURED RIGHT LEG. PT TOLERATED SITTING UP IN THE CHAIR FOR ABOUT 2 HOURS WITH FAMILY IN ROOM WITH HER.
[2019-10-02 20:00] VITALS: BP 116/70
[2019-10-03] VITALS: BP 130/58
--- NOTE | 2019-10-03 01:04 | NUR ---
PATIENT MEDICATED WITH MORPHINE FOR COMPLAINTS OF RIGHT LEG PAIN. WILL MONITOR FOR EFFECTIVENESS. CALL LIGHT IN REACH.
--- NOTE | 2019-10-03 01:32 | NUR ---
MEDICATED WITH ZOFRAN FOR COMPLAINTS OF NAUSEA. MORPHINE EFFECTIVE AT THIS TIME. RESPIRATIONS REGULAR AND NON-LABORED ON 2L N/C. VOIDED IN BEDPAN 350CC WITH BRIEF BEING WET ALSO. WILL CONTINUE TO MONITOR. CALL LIGHT IN REACH.
--- NOTE | 2019-10-03 04:47 | NUR ---
Upon discharge recommend patient to follow up for wound care in outpatient setting continue current wound care orders at discharging facility.
[2019-10-03 08:00] VITALS: BP 144/68
[2019-10-03 08:28] LABS: ALBUMIN 1.9 gm/dl (3.1-4.5); CREATININE 1.35 mg/dL (0.55-1.02); POTASSIUM 3.4 mmol/L (3.5-5.1); TOTAL PROTEIN 5.7 gm/dL (6.4-8.2)
[2019-10-03 08:41] LABS: HEMATOCRIT 25.3 % (37.0-47.0); HEMOGLOBIN 7.8 g/dl (12.0-16.0); MEAN CELL VOLUME 123.4 fl (81.0-99.0); MEAN CORPUSCULAR HGB CONC 30.8 g/dl (33.0-37.0); MEAN PLATELET VOLUME 13.1 fl (9.6-12.3); NUCLEATED RED BLOOD CELL 0.3 10*3/uL (0.0-0.0); NUCLEATED RED BLOOD CELL 2.6 % (0.0-0.0); PLATELET COUNT AUTOMATED 212 10*3/uL (130-400); RED BLOOD COUNT 2.05 10*6/uL (4.10-5.10); RED CELL DISTRI WIDTH 22.8 % (0-14.5); WHITE BLOOD COUNT 13.2 10*3/uL (4.8-10.8)
--- NOTE | 2019-10-03 08:48 | NUR ---
PT RESTING IN BED/ NO DISTRESS NOTED. WILL MONITOR
--- NOTE | 2019-10-03 09:01 | NUR ---
[facility] consult called to [facility]
--- NOTE | 2019-10-03 09:20 | NUR ---
PHYSICAL THERAPY Patient seen this am 1:1 for therapy visit and was supine in bed following patient care upon therapist arrival. Patient identified by name / and presented with continuos O2-2L via NC. Patient transfers supine to sit EOB with MAX A x 2, tolerating static EOB sit x several minutes, CGA x 1. Patient also preseted with R LE splint from ankle to Posterior Femur secondary to FX. Patient is NWB on R LE and was able to complete seated L LE therex, LAQ / marching x 10 reps each. Patient is Dependent transfer sit to stand and SPT to bedside chair secondary to generalized global weakness / Poor transfer technique to attempt safely. Patient remained in bedside chair with call light, tray table, telephone and body alarm for safety. Will continue per POC as tolerated, total treatment time 14 minutes. Darryl Herring, RESIDENT CARE SPEC
--- NOTE | 2019-10-03 09:35 | NUR ---
OT NOTE Pt was seen this A.M. 1:1 for 25 minute OT session. Upon arrival pt was supine in bed. Pt identified by name and and had no complaints at this time. Pt presented to therapy with continuous 2L-O2 via NC which she remained on throughout the entire session. Pt transferred supine to sit EOB with maxA X 2 for assist with both upper and lower body. While sitting EOB pt completed grooming task consisting of brushing her hair and pt was able to complete with SBA. Also while sitting EOB pt completed BUE towel exercises over all planes of motion for 1 X 10 with emphasis on triceps for increased I in functional transfers. Pt then completed sit to stand from bed level followed by standing pivot from the EOB to the recliner as a total dependent transfer with maxA for maintaining NWB to RLE. Pt was left sitting upright in the recliner with call light in hand, tray table in place, and body alarm activated for safety. Continue with POC as able. JOANIE Lowe
--- NOTE | 2019-10-03 09:47 | NUR ---
SPOKE WITH DR MCFARLAND AND NOTIFIED HIM OF PT HAVING NO IV SITE
[2019-10-03 10:15] LABS: PLATELET SUFFICIENCY NORMAL (NORMAL); SCHISTOCYTES FEW; TARGET CELLS MODERATE; TOTAL CELLS COUNTED 100 #CELLS
--- NOTE | 2019-10-03 11:37 | NUR ---
Updated clinicals faxed to [facility] to continue precert. waiting on auth.
[2019-10-03 12:00] VITALS: BP 147/66
--- NOTE | 2019-10-03 13:35 | NUR ---
Patient has received auth to return to [facility] and is ok to go if medically stable for discharge.
--- NOTE | 2019-10-03 15:30 | NUR ---
PT INCONTINENT FOR LARGE AMOUNT OF URINE
[2019-10-03 16:00] VITALS: BP 122/52
[2019-10-03 20:00] VITALS: BP 129/50
--- NOTE | 2019-10-03 21:50 | NUR ---
PATIENT MEDICATED WITH RESTORIL PER DAUGHTER'S REQUEST FOR INSOMNIA. WILL MONITOR FOR EFFECTIVENESS.
--- NOTE | 2019-10-04 03:15 | NUR ---
24 HR chart check completed.
--- NOTE | 2019-10-04 04:12 | NUR ---
RESTORIL EFFECTIVE. PATIENT SLEEPING WELL ALL NIGHT. NO SIGNS OR SYMPTOMS OF DISTRESS NOTED. RESPIRATIONS REGULAR AND NON-LABORED ON 2L N/C. WILL CONTINUE TO MONITOR. CALL LIGHT IN REACH.
--- NOTE | 2019-10-04 04:56 | NUR ---
PATIENT MEDICATED WITH MORPHINE FOR COMPLAINTS OF PAIN. WILL MONITOR FOR EFFECTIVENESS. CALL LIGHT IN REACH.
--- NOTE | 2019-10-04 06:07 | NUR ---
PATIENT BLADDER SCANNED FOR 337CC. VOIDED IN BED BETTS 200CC. NO STRAIGHT CATH AT THIS TIME.
[2019-10-04 06:36] LABS: HEMATOCRIT 23.9 % (37.0-47.0); HEMOGLOBIN 7.2 g/dl (12.0-16.0); MEAN CELL VOLUME 124.5 fl (81.0-99.0); MEAN CORPUSCULAR HGB 37.5 pg (27.0-31.0); MEAN CORPUSCULAR HGB CONC 30.1 g/dl (33.0-37.0); MEAN PLATELET VOLUME 12.5 fl (9.6-12.3); NUCLEATED RED BLOOD CELL 0.3 10*3/uL (0.0-0.0); NUCLEATED RED BLOOD CELL 3.5 % (0.0-0.0); PLATELET COUNT AUTOMATED 195 10*3/uL (130-400); RED BLOOD COUNT 1.92 10*6/uL (4.10-5.10); RED CELL DISTRI WIDTH 22.8 % (0-14.5); WHITE BLOOD COUNT 8.9 10*3/uL (4.8-10.8)
[2019-10-04 07:03] LABS: ALBUMIN 1.7 gm/dl (3.1-4.5); CREATININE 1.31 mg/dL (0.55-1.02); POTASSIUM 3.4 mmol/L (3.5-5.1); TOTAL PROTEIN 5.1 gm/dL (6.4-8.2)
[2019-10-04 08:00] VITALS: BP 136/64
[2019-10-04 08:08] LABS: HOWELL-JOLLY BODIES FEW; PLATELET SUFFICIENCY NORMAL (NORMAL); TARGET CELLS MODERATE; TOTAL CELLS COUNTED 100 #CELLS
[2019-10-04 08:09] LABS: POLYCHROMASIA SLIGHT
--- NOTE | 2019-10-04 09:30 | NUR ---
OT NOTE Pt was seen this A.M. 1:1 for 25 minute OT session. Upon arrival pt was supine in bed. Pt identified by name and and had no complaints at this time. Pt presented to therapy with continuous 2L-O2 via NC which she remained on throughout the entire session. Pt transferred supine to sit EOB with modA X 2. While sitting EOB pt completed grooming task consisting of washing her hands and face with CGA after set up. Also while seated pt completed BUE towel exercises over all planes of motion for 1 X 10 to increase and restore maximum functional use. Sit to stand completed from bed level followed by standing pivot to the recliner with total dependent transfer and maxA for maintaining NWB to RLE. Pt was left sitting upright in the recliner with call light in hand, tray table in place, and body alarm activated for safety. Continue with rec D/C plan to SNF. ALIYAH Lowe/Daniel
--- NOTE | 2019-10-04 09:56 | NUR ---
PHYSICAL THERAPY Patient presented to therapy in supine with 3 liters of spO2 VIA NASAL CANULA and report of pain in the R LE. Patient gives infomred consent for treatment. Patient was identified by name and on wristband. Patient performed supine to sitting at EOB transfer with MAX A X 2. Patient sat on EOB with CGA. Patient required MAX A X 2 to scoot to EOB. SPT - TOTAL DEPENDENT TRANSFER - to bedside chair. Patient performed seated L LE ther ex imncluding R LAQs, Marches, and ankle pumps and hip abduction 2 x 10 reps and ankle pumps on the R LE 2 X 10 reps in order to improve patient's functional mobility. Patient was left in bedside chair with chair alarm tested and attached to patient, call light within reach and LEs in low position with tray tsable in front of patient. Patient was 1:1 with this SALON DESIGNER for 20 minutes. ADIN CONCEPCION TPA
[2019-10-04] MEDS ORDERED: AVPAK AZITHROM250 MG PO (11:04)
[2019-10-04] MEDS ORDERED: NAMENDA-5 PO (11:04)
--- NOTE | 2019-10-04 12:43 | NUR ---
case management received an order that patient is being discharged to [facility] for [facility], cyber intel planner made transportation arrangements. case management contacted patient's daughter regarding discharge arrangements, attempted to contact patient's , no answer on home phone, no voicemail, patient's nurse notified that was not notified
--- NOTE | 2019-10-04 12:49 | NUR ---
Received orders to Discharge patient today with return to [facility]. Notified Kaye at facility or discharge. Transportation arranged with [facility] to Transport with picker packer time within 15-20 minutes after call placed. Notified 5[employer] Floor Self Storage Manager Nicolette. Med Necessity for Ambulance Transportation completed and given to Splicing Machine Operator Automatic.
--- NOTE | 2019-10-04 13:14 | NUR ---
PT DISCHARGED TO [facility] AT THIS TIME. NOAH SEVERINO. REPORT GIVEN TO RECIEVING NURSE. Sonny. [facility] KIM.
--- NOTE | 2019-10-04 13:19 | NUR ---
PT REFUSED DISCHARGE WOUND PHOTOS.
--- NOTE | 2019-10-05 07:55 | NUR ---
PHYSICAL THERAPY CO-SIGN I approve of the Physical Therapy notes written above. Daria Estrada PT
--- NOTE | 2019-10-05 08:16 | NUR ---
OCCUPATIONAL THERAPY CO-SIGN I approve of the Occupational Therapy notes written above. WINIFRED CANALES OTR/Daniel
== END 2019-10-04 13:14 | disposition other institution (70) | DRG 193 ==
LOC: ED 23:59 → 5E 10-01 03:50 → 4E 10-01 03:50 → EDHOLD 10-01 03:50 → 4E 10-01 04:26 → 5E 10-02 14:59
PROVIDERS: Emergency Medicine; Internal Medicine; ADMIT Internal Medicine
DX: J18.9 Pneumonia, unspecified organism (principal); N17.0 Acute kidney failure with tubular necrosis; E87.2 Acidosis; E44.0 Moderate protein-calorie malnutrition; E87.0 Hyperosmolality and hypernatremia; B37.49 Other urogenital candidiasis; K21.9 Gastro-esophageal reflux disease without esophagitis; F41.1 Generalized anxiety disorder; Z96.659 Presence of unspecified artificial knee joint; E11.65 Type 2 diabetes mellitus with hyperglycemia; D64.9 Anemia, unspecified; E03.9 Hypothyroidism, unspecified; E87.8 Other disorders of electrolyte and fluid balance, not elsewhere classified; G30.9 Alzheimer's disease, unspecified; F02.80 Dementia in other diseases classified elsewhere, unspecified severity, without behavioral disturbance, psychotic disturbance, mood disturbance, and anxiety; F39 Unspecified mood [affective] disorder; E11.40 Type 2 diabetes mellitus with diabetic neuropathy, unspecified; Z90.710 Acquired absence of both cervix and uterus; Z90.49 Acquired absence of other specified parts of digestive tract; Z82.3 Family history of stroke; Z83.3 Family history of diabetes mellitus; Z82.49 Family history of ischemic heart disease and other diseases of the circulatory system; Z88.5 Allergy status to narcotic agent; Z79.82 Long term (current) use of aspirin; Z79.899 Other long term (current) drug therapy; Z22.322 Carrier or suspected carrier of Methicillin resistant Staphylococcus aureus